=== PATIENT | female | born 1950 | race Caucasian/White ===

== ENCOUNTER 2017-08-29 08:54 | Outpatient (CLI) | payer OTHER ==
[~2017-08-29 08:54] MED LIST: NABUMETONE500 MG PO; NORVASC5 MG PO; PERCOCET 5/3251 TAB PO
== END 2017-08-29 09:08 | disposition home or self-care (01) ==
LOC: RAD 08:54
DX: M20.41 Other hammer toe(s) (acquired), right foot (principal); M20.42 Other hammer toe(s) (acquired), left foot

== ENCOUNTER 2017-09-11 09:16 | Outpatient (CLI) | payer OTHER | END 2017-09-11 09:21 | disposition home or self-care (01) | LOC: RAD 09:16 | DX: I73.89 Other specified peripheral vascular diseases (principal) ==

== ENCOUNTER 2017-11-26 11:47 | Outpatient (CLI) | payer OTHER | END 2017-11-26 15:49 | disposition home or self-care (01) | LOC: RAD 11:47 | DX: J20.8 Acute bronchitis due to other specified organisms (principal); R05 Cough; J04.2 Acute laryngotracheitis; J11.1 Influenza due to unidentified influenza virus with other respiratory manifestations ==

== ENCOUNTER 2018-03-13 05:11 | Day surgery (SDC) | payer OTHER ==
[~2018-03-13 05:11] MED LIST changes: +ATENOLOL25 MG PO; +CLINORIL PO; +FOLIC ACID1 MG PO; +HUMIRA20 MG/0.4; +METHOTREXATE2.5 MG PO; +ORAPRED ODT10 MG PO; +VASOTEC10 MG PO
== END 2018-03-13 12:00 | disposition home or self-care (01) ==
LOC: CIR.AMB 05:11
DX: M06.321 Rheumatoid nodule, right elbow (principal)

== ENCOUNTER 2020-11-15 14:12 | Outpatient (CLI) | payer OTHER | END 2020-11-15 14:21 | disposition home or self-care (01) | LOC: RAD 14:12 | PROVIDERS: ATTEND Podiatrist Foot Surgery | DX: M20.41 Other hammer toe(s) (acquired), right foot (principal); M20.42 Other hammer toe(s) (acquired), left foot ==

== ENCOUNTER 2021-03-24 08:00 | Outpatient (CLI) | payer OTHER | END 2021-03-24 08:30 | disposition home or self-care (01) | LOC: PPH VACUNA 08:00 | DX: Z23 Encounter for immunization (principal) ==

== ENCOUNTER 2021-09-06 08:36 | Outpatient (CLI) | payer OTHER | END 2021-09-06 08:50 | disposition home or self-care (01) | LOC: MAMO-SONO 08:36 | PROVIDERS: ATTEND Internal Medicine | DX: Z12.31 Encounter for screening mammogram for malignant neoplasm of breast (principal); N63.0 Unspecified lump in unspecified breast ==

== ENCOUNTER 2021-11-14 08:00 | Outpatient (CLI) | payer OTHER | END 2021-11-14 08:30 | disposition home or self-care (01) | LOC: PPH VACUNA 08:00 | PROVIDERS: ATTEND Emergency Medicine Pediatric Emergency Medicine | DX: Z23 Encounter for immunization (principal) ==